=== PATIENT | male | born 1945 | race Caucasian/White ===

== ENCOUNTER 2020-02-12 08:55 | Day surgery (SDC) | payer OTHER, SELFPAY ==
[~2020-02-12] VITALS: Ht 152.4 cm; Wt 73.9 kg
[2020-02-12] MEDS ORDERED: SIMETHICONE 40 MG/0.6 ML ML ONE (09:10)
[2020-02-12] MEDS: MIDAZOLAM HCL 5 MG/5 ML VIAL ONE ×3 (10:01→10:05)
[2020-02-12] MEDS: MEPERIDINE HCL/PF 100 MG/ML AMP ONE ×2 (10:01→10:07)
[2020-02-12 13:16] VITALS: BP_SYST 107
== END 2020-02-12 12:20 | disposition home or self-care (01) ==
LOC: SMU 08:55 → SDS 08:55
PROVIDERS: ATTEND Colon & Rectal Surgery
DX: Z12.11 Encounter for screening for malignant neoplasm of colon (principal); Z86.010 Personal history of colon polyps; K57.30 Diverticulosis of large intestine without perforation or abscess without bleeding; K62.89 Other specified diseases of anus and rectum; E03.9 Hypothyroidism, unspecified; I10 Essential (primary) hypertension; Z90.49 Acquired absence of other specified parts of digestive tract; Z20.828 Contact with and (suspected) exposure to other viral communicable diseases; Z79.899 Other long term (current) drug therapy
CPT/HCPCS: 45378; 99152; J2175; J2250; U0003; J7030